=== PATIENT | male | born 1980 | race Caucasian/White ===

== ENCOUNTER 2022-02-24 09:00 | Outpatient (CLI) | payer OTHER | END 2022-02-24 09:12 | disposition home or self-care (01) | LOC: SONOGRAMA 09:00 | PROVIDERS: ATTEND Internal Medicine Gastroenterology | DX: R10.32 Left lower quadrant pain (principal); R74.01 Elevation of levels of liver transaminase levels ==

== ENCOUNTER 2022-05-30 01:09 | Emergency (ER) | payer OTHER ==
[~2022-05-30] VITALS: Ht 175.3 cm; Wt 81.6 kg
[2022-05-30] MEDS ORDERED: ORPHENADRINE C100 MG PO (02:59)
[2022-05-30] MEDS ORDERED: DICLOFENAC POTA50 MG PO (02:59)
== END 2022-05-30 03:09 ==
LOC: ER 01:09
DX: S13.9XXA Sprain of joints and ligaments of unspecified parts of neck, initial encounter (principal); V43.52XA Car driver injured in collision with other type car in traffic accident, initial encounter; Y93.I9 Activity, other involving external motion; Y92.413 State road as the place of occurrence of the external cause; S33.5XXA Sprain of ligaments of lumbar spine, initial encounter; Z91.018 Allergy to other foods; Z88.6 Allergy status to analgesic agent

== ENCOUNTER 2023-07-05 18:29 | Emergency (ER) | payer OTHER ==
[~2023-07-05] VITALS: Ht 167.6 cm; Wt 81.6 kg
[~2023-07-05 18:29] MED LIST: DICLOFENAC POTA50 MG PO; ORPHENADRINE C100 MG PO
[2023-07-05] MEDS ORDERED: KETO10TA2 PO (21:57)
[2023-07-05] MEDS ORDERED: NORFLEX100MG PO (21:57)
== END 2023-07-05 22:40 | disposition home or self-care (01) ==
LOC: ER 18:29
DX: M54.50 Low back pain, unspecified (principal); Z88.6 Allergy status to analgesic agent